=== PATIENT | male | born 1965 | race Caucasian/White ===

== ENCOUNTER 2017-10-09 10:56 | Inpatient (IN) | payer BC ==
[2017-10-04 16:11] VITALS: BMI 38.2
[2017-10-09] MEDS ORDERED: BUPIVACAINE HCL/PF 0.5% (5MG/ML) 10 ML VIAL ONE (12:57)
[2017-10-09] MEDS ORDERED: MIDAZOLAM HCL 2 MG/2 ML SINGLE DOSE VIAL ONE (13:35)
[2017-10-09] MEDS ORDERED: DEXAMETHASONE SOD PHOSPHATE 4 MG/1 ML VIAL ONE ×2 (13:35→17:18)
[2017-10-09] MEDS ORDERED: LIDOCAINE HCL/PF 2% SDV 5ML VIAL ONE (13:35)
[2017-10-09] MEDS ORDERED: fentaNYL CITRATE 250 MCG/5 ML VIAL ONE ×2 (13:50→16:34)
[2017-10-09] MEDS ORDERED: ROCURONIUM BROMIDE 50 MG/5 ML VIAL ONE ×2 (13:51→14:25)
[2017-10-09] MEDS ORDERED: PROPOFOL 20 ML ONE (13:51)
[2017-10-09] MEDS ORDERED: ceFAZolin SODIUM 1 GM VIAL ONE (13:52)
[2017-10-09] MEDS ORDERED: ceFAZolin SODIUM 1 GM VIAL IVPB ONE (14:00)
--- NOTE | 2017-10-09 14:35 | PREOP ---
DATE OF ADMISSION: 10/09/2017 CHIEF COMPLAINT: 1. Morbid obesity. 2. Epigastric abdominal pain. 3. Gastroesophageal reflux disease. 4. Vomiting. HISTORY OF PRESENT ILLNESS: The patient is a 52-year-old gentleman with a history of morbid obesity for many years despite multiple attempts at dietary weight loss. He underwent a laparoscopic gastric band procedure years ago which initially was successful but since then had caused problems most likely being epigastric pain, GE reflux disease, and vomiting. He presents now for removal of the gastric band plus subcutaneous port and conversion to a sleeve gastrectomy surgery. PAST MEDICAL HISTORY: Significant for GE reflux disease, sleep apnea, and high cholesterol. REVIEW OF SYMPTOMS: Neurologic: Within normal limits. Pulmonary: Within normal limits. Cardiovascular: Within normal limits. Gastrointestinal: Positive for GE reflux disease. Extremities: Within normal limits. PHYSICAL EXAMINATION: General: Awake, alert, morbidly obese. No acute distress. HEENT: No masses palpated. Lungs: Clear bilaterally. Heart: Regular sinus rhythm. Abdomen: Well-healed trocar incision. Soft, nontender on palpation. Extremities: No pitting edema. No swelling noted. IMPRESSION: Morbid obesity, epigastric pain, vomiting, gastroesophageal reflux disease. PLAN: Removal of gastric band plus subcutaneous port and conversion to laparoscopic vertical sleeve gastrectomy. Lee [id number]
[2017-10-09] MEDS ORDERED: LABETALOL HCL 5 MG/1 ML (100MG/20 ML VIAL) ONE (15:48)
[2017-10-09] MEDS ORDERED: BUPIVACAINE HCL/PF 0.5% (5MG/ML) 10 ML VIAL IJ ONE (17:15)
[2017-10-09] MEDS: METOCLOPRAMIDE HCL INJECTION 10 MG/2 ML VIAL IVPUSH SCH ×2 (17:18→23:44)
[2017-10-09] MEDS ORDERED: GLYCOPYRROLATE 0.2 MG/1 ML VIAL ONE (17:19)
[2017-10-09] MEDS ORDERED: NEOSTIGMINE METHYLSULFATE 0.5 MG/ML - 10 ML MDV ONE (17:19)
[2017-10-09] MEDS ORDERED: ONDANSETRON 4 MG/2 ML VIAL IVPUSH PRN (17:26)
[2017-10-09] MEDS ORDERED: HYDROmorphone HCL CARPU-JECT 1 MG/1 ML DISP.SYRIN IVPB PRN (17:27)
--- NOTE | 2017-10-09 17:28 | OP ---
Operative Note - Note: Operative Date: 10/09/17 Pre-Operative Diagnosis: S/P gastric band removal- evaluate anatomy prior to sleeve gastrectomy Operation: EGD/upper endoscopy Findings: No torsion, mild narrowing near proximal aspect of the stomach near prior gastric wrap Post-Operative Diagnosis: Same as Pre-op Surgeon: Reagan Martínez Groundskeeper Supervisor: Frankie Girard Anesthesia: General Specimens Removed: None Estimated Blood Loss (mls): 0 Operative Report Dictated: Yes
--- NOTE | 2017-10-09 17:31 | OP ---
Operative Note - Note: Operative Date: 10/09/17 Pre-Operative Diagnosis: S/P vertical sleeve gastrectomy- evaluate for leak/ obstruction Operation: EGD/upper endoscopy Findings: No leak/obstruction Prior area of narrowing improved after gastric wrap further dissected/opened up Post-Operative Diagnosis: Same as Pre-op Surgeon: Reagan Martínez Clinical Resource Manager: Frankie Girard Anesthesia: General Specimens Removed: None Estimated Blood Loss (mls): 0 Operative Report Dictated: Yes
[2017-10-09] MEDS ORDERED: HYDROmorphone HCL CARPU-JECT 2 MG/1 ML DISP.SYRIN IVPUSH PRN (17:40)
[2017-10-09] MEDS ORDERED: METOCLOPRAMIDE HCL INJECTION 10 MG/2 ML VIAL ONE (18:15)
[2017-10-09 18:27] LABS: MCH 28.9 pg (25.7-33.7); MCHC 33.8 g/dl (32.0-35.9); MEAN CELL VOLUME 85.5 fl (80-96); MEAN PLT VOLUME 8.8 fl (7.5-11.1); PLATELET COUNT 203 K/MM3 (134-434); RDW 14.1 % (11.9-15.9); WHITE BLOOD COUNT 11.4 K/mm3 (4.0-10.0)
[2017-10-09] MEDS ORDERED: PROMETHAZINE HCL 25 MG/1 ML VIAL ONE (18:28)
[2017-10-09 18:50] LABS: ALBUMIN 3.4 g/dl (3.4-5.0); ANION GAP 6 (8-16); BILIRUBIN,TOTAL 0.5 mg/dL (0.2-1.0); CALCIUM 7.9 mg/dL (8.5-10.1); CO2 28 mmol/L (21-32); CREATININE 1.1 mg/dL (0.7-1.3); GLUCOSE,RANDOM 142 mg/dL (74-106); SGOT/AST 38 U/L (15-37); SGPT/ALT 34 U/L (12-78); TOT PROT 6.6 g/dl (6.4-8.2)
[2017-10-09 18:51] LABS: ALK PHOS 58 U/L (45-117)
[2017-10-09] MEDS: SODIUM CHLORIDE 1,000 ML IV SCH (19:00)
[2017-10-09] MEDS ORDERED: PROMETHAZINE HCL 25 MG/1 ML VIAL IVPUSH ONE (19:31)
[2017-10-09] MEDS ORDERED: HYDROmorphone HCL CARPU-JECT 2 MG/1 ML DISP.SYRIN ONE (19:58)
[2017-10-09] MEDS: ENOXAPARIN NA (PORCINE) 40 MG/0.4 ML DISP.SYRIN SQ SCH (23:38)
[2017-10-09] MEDS: FAMOTIDINE 20 MG/50 ML IVPB 20 MG/50 ML MG IVPB SCH (23:39)
[2017-10-10] MEDS: METOCLOPRAMIDE HCL INJECTION 10 MG/2 ML VIAL IVPUSH SCH ×3 (06:34→16:55)
[2017-10-10 07:28] LABS: MCH 29.3 pg (25.7-33.7); MCHC 34.3 g/dl (32.0-35.9); MEAN CELL VOLUME 85.4 fl (80-96); MEAN PLT VOLUME 9.4 fl (7.5-11.1); PLATELET COUNT 200 K/MM3 (134-434); RDW 13.8 % (11.9-15.9)
[2017-10-10 07:33] LABS: ALBUMIN 3.3 g/dl (3.4-5.0); ANION GAP 9 (8-16); BILIRUBIN,TOTAL 0.5 mg/dL (0.2-1.0); CALCIUM 8.5 mg/dL (8.5-10.1); CO2 30 mmol/L (21-32); CREATININE 1.3 mg/dL (0.7-1.3); GLUCOSE,RANDOM 133 mg/dL (74-106); SGOT/AST 37 U/L (15-37); SGPT/ALT 35 U/L (12-78); TOT PROT 6.5 g/dl (6.4-8.2)
[2017-10-10 07:34] LABS: ALK PHOS 50 U/L (45-117)
[2017-10-10] MEDS ORDERED: ACETAMINOPHEN 1000 MG/100 ML VIAL (NON FORMULARY) IVPB ONE (08:08)
--- NOTE | 2017-10-10 08:11 | PN ---
Progress Note (short form) - Note Progress Note: POD#1 Pt without any nausea or emesis. No CP or SOB. He complains of neck and upper shoulder pain. No numbness or tingling in his upper extremities. Vital Signs Period Temp Pulse Resp BP Sys/Peña Pulse Ox Last 24 Hr 97.6 F-98.5 F 55-74 11-20 108-170/62-91 93-98 GEN: appears comfortable CV: RRR Lungs: CTA b/l ABD: soft, non-distended, inc tenderness. Inc c/d/i. LE: no calf tenderness or swelling noted b/l. Landy and SCDs in place. CBC, BMP 10/10/ 06:30 A/P: s/p lap band removal with vertical sleeve gastrectomy IV tylenol for neck/shoulder pain Plan for UGI study today and if negative may begin oral bariatric diet cbc/chem today DVT ppx with SCD/LANDY stocking. Lovenox SQ.
--- NOTE | 2017-10-10 08:57 | OP ---
DATE OF OPERATION: 10/09/2017 SURGEON: Juan Martínez MD RETAIL STORE MANAGER: Frankie Girard MD PREOPERATIVE DIAGNOSIS: Status post removal of gastric band, evaluate anatomy prior to sleeve gastrectomy. ANESTHESIA: GET. ESTIMATED BLOOD LOSS: Zero. SPECIMEN: None. REASON FOR PROCEDURE: This is a 52-year-old gentleman who had a prior gastric band placed. He was undergoing a removal of gastric band with possible sleeve gastrectomy. After the gastric band was removed and the capsulotomy performed, endoscopy was requested to further evaluate the anatomy prior to a sleeve gastrectomy. DESCRIPTION OF PROCEDURE: The endoscope was inserted into the mouth. The entirety of the esophagus, GE junction, and stomach was inspected. There was a mild narrowing at the proximal aspect of the stomach near where the gastric wrap had previously been performed. The remainder of the stomach was noted to be within normal limits. No torsion was noted. At this point, the endoscope was used to suction the stomach, and the endoscope was removed fully intact. The remainder of the surgery was performed including a further dissection of the gastric wrap and sleeve gastrectomy. Patient tolerated the procedure well. JUAN MARTÍNEZ M.D. [id number]
[2017-10-10] MEDS: ENOXAPARIN NA (PORCINE) 40 MG/0.4 ML DISP.SYRIN SQ SCH (09:37)
[2017-10-10] MEDS: SODIUM CHLORIDE 1,000 ML IV SCH (09:38)
[2017-10-10] MEDS: FAMOTIDINE 20 MG/50 ML IVPB 20 MG/50 ML MG IVPB SCH (09:38)
[2017-10-10] MEDS ORDERED: ESCITALOPRAM OXALATE 20 MG TABLET (FP) PO SCH (10:00)
--- NOTE | 2017-10-10 10:12 | OP ---
DATE OF OPERATION: 10/09/2017 PREOPERATIVE DIAGNOSES: 1. Morbid obesity. 2. Malfunctioning implantable device secondary to gastric band. 3. Epigastric pain. 4. Gastroesophageal reflux disease. 5. Vomiting. 6. Sleep apnea. POSTOPERATIVE DIAGNOSES: 1. Morbid obesity. 2. Malfunctioning implantable device secondary to gastric band. 3. Epigastric pain. 4. Gastroesophageal reflux disease. 5. Vomiting. 6. Sleep apnea. 7. Abdominal adhesions. 8. Hepatomegaly. PROCEDURE PERFORMED: 1. Laparoscopic vertical sleeve gastrectomy. 2. Removal of gastric band plus subcutaneous port component. 3. Wedge biopsy of the left lobe of the liver. 4. Laparoscopic lysis of adhesions. 5. Excision of fibrous capsule around the stomach. 6. Diagnostic laparoscopy. OPERATING SURGEON: Frankie Girard MD MANAGER ROOM: Reagan Martínez MD ANESTHESIA: General. EXPECTED BLOOD LOSS: 50 mL DISPOSITION: Patient transferred to recovery room in stable condition. DESCRIPTION OF OPERATIVE PROCEDURE: The patient was brought into the operating room and placed on the OR table in the supine position. All precautions were taken initially including padding for the back and the feet, and Venodyne boots were placed on both lower extremities. At that point, the abdomen was prepped and draped in the usual manner. A Veress needle was placed in the left upper quadrant and a pneumoperitoneum established. A number 12 bladeless trocar was placed in the left upper quadrant. Through that trocar, a laparoscopic camera was placed. Under direct vision, a number 15 bladeless trocar was placed in the midline in the supraumbilical position, following a number 5 bladeless trocar in the right upper quadrant and a number 5 bladeless trocar below the left costal margin. A Abby liver retractor was then placed in the epigastrium to retract the left lobe of the liver. The left lobe was noted to be enlarged and also to have scar tissue between the omentum and the undersurface of the left lobe of the liver. This scar tissue needed to be removed in order to fully lift the liver up. The electrocautery was used to dissect the scar tissue off the liver, and at this point, the liver retractor was placed deeper into the liver and then lifted so that more visualization was obtained. The liver was noted to be enlarged; so, I decided a wedge biopsy would be performed. With the electrocautery turned higher, first the capsule and then parenchyma of the liver on the edge of the left lobe was dissected, and a wedge piece of liver was taken off the liver edge and sent off the field as a specimen to Pathology. The parenchyma of the liver had some minor bleeding which was easily controlled with electrocautery. At this point, our attention was directed to the band around the upper portion of the stomach. There was significant scar tissue over it, and this was dissected with electrocautery on the lesser curvature side until the entire band on the lesser curvature was in full view. At this point, the operating surgeon grabbed the band tubing and retracted it toward the patient's right side as the media center assistant surgeon retracted the inferior stomach inferiorly to provide better access to the greater curvature of the band. The capsule over the band was now dissected with electrocautery off the band until the entire band was in full view. The band tubing was then cut at its takeoff to the subcutaneous port, and the band tubing was then removed from around the stomach and sent off the field to Pathology as a specimen. At this point, attention was directed to the fibrous capsule around the upper stomach where the band had been. With the media center assistant surgeon and the operating surgeon lifting the capsule upward, the operating surgeon was able to place a laparoscopic scissor underneath the fibrous capsule and then dissect the fibrous capsule and split it in half starting inferiorly and going all the way superiorly almost to the esophageal area. Once this was fully clean, the scar tissue was then pulled backward toward the left side or the lesser curvature side and dissected off the stomach wall. Dissection also continued toward the greater curvature side until all the fibrous capsule around the stomach was now clean. At this point, the media center assistant surgeon, Dr. Martínez, stepped out of the operative field and performed an upper endoscopy which will be described in his operative note. What it did show was that there was some minor twisting in the upper part of the stomach, probably where the band had been, and this may cause difficulty if the sleeve was very tight. The rest of the stomach within normal limit including the body and the antrum of the stomach down to the pylorus. At this point, Dr. Martínez returned to the operative field where further dissection of the scar tissue on the lesser curvature was performed, and this was until the entire stomach was in full view on the anterior surface. At this point, 6 cm was measured proximally from the pylorus, and here, the LigaSure device was used to dissect the gastrocolic ligament off the greater curve of stomach. The operating surgeon lifted the stomach toward the anterior abdominal wall as the media center assistant surgeon retracted the gastrocolic ligament inferiorly. The LigaSure dissected the gastrocolic ligament initially and then, also, the short gastric vessels superiorly until the final short gastric vessel between the proximal fundus and the superior pole of spleen were dissected. At this juncture, Anesthesia placed a number 40 bougie into the stomach. With the bougie held along the lesser curvature, a series of ruddy was performed with the first two being black load ruddy 6 cm in length along the bougie. This was followed by a series of purple load ruddy along the bougie until the final staple was fired in the left upper quadrant, and the greater curve was now completely detached from the lesser curve. It should be noted that prior to firing each staple, both the anterior and posterior grajeda were checked that they were intact. In the area of the esophagogastric junction, approximately 1 to 1.5 cm of serosa remained on the anterior and posterior surfaces. At this juncture, saline was placed around the staple line, and the bougie was inflated with air. This showed the entire stomach distended down to the pylorus. No obstruction and no leaks were noted. At this juncture, Dr. Martínez again stepped out of the operative field and performed another upper endoscopy, this one post procedure. This showed that the upper stomach was now a more direct route with no signs of any twists, and all the way down to the antrum and pylorus, there was no sign of obstruction. Also, no signs of leakage noted from the staple line. At this juncture, the greater curvature which was resected was removed with a number 15 trocar site in the midline, sent off the field as a specimen to Pathology. Under direct vision, the number 15 and 12 trocar sites were closed with Endo Closure device to prevent internal hernia and prevent bleeding. Under direct vision, all trocars were removed, and pneumoperitoneum was released. The number 15 site in the midline was now extended toward the right, and the port in the right upper quadrant was now in full view. The scar tissue and fibrous capsule over the port were dissected, and the port was then removed from the right anterior rectus muscle and sent off the field as a specimen to Pathology. All trocar sites then received 0.25% Marcaine. The port site was closed with 3-0 Vicryl in the subcutaneous tissue and then followed by 4-0 Biosyn in subcuticular fashion. All other trocar sites received 4-0 Biosyn in subcuticular fashion. Dressings were applied. Patient awoke from anesthesia and transferred out of the operating room to the recovery room in stable condition. Lee [id number]
--- NOTE | 2017-10-10 10:30 | OP ---
DATE OF OPERATION: 10/09/2017 SURGEON: Juan Martínez MD SCRUBBING MACHINE OPERATOR: Frankie Girard MD PREOPERATIVE DIAGNOSES: Status post vertical sleeve gastrectomy, evaluate for a leak/obstruction. POSTOPERATIVE DIAGNOSES: Status post vertical sleeve gastrectomy, evaluate for a leak/obstruction. PROCEDURE: Esophagogastroduodenoscopy/upper endoscopy. ESTIMATED BLOOD LOSS: 0 mL. DRAINS: None. ANESTHESIA: GET. REASON FOR PROCEDURE: This is a 52-year-old gentleman who underwent a vertical sleeve gastrectomy laparoscopically. To further evaluate the anatomy and to evaluate for leak and obstruction, an upper endoscopy was requested. DESCRIPTION OF PROCEDURE: The endoscope was inserted into the patients mouth. Esophagus, GE junction, and the gastric pouch was fully inspected. The previous area of narrowing that was noted after the band removal was now noted to be no longer present. The area of narrowing had opened significantly after the prior gastrograph was further dissected. The entirety of the staple line was inspected and noted to be intact. There was no leak or obstruction noted. The endoscope was removed after suctioning the stomach, and patient tolerated the procedure well. JUAN MARTÍNEZ M.D. [id number]
--- NOTE | 2017-10-10 11:00 | PN ---
Progress Note (short form) - Note Progress Note: Anesthesia Post op Pt seen and examined S:alert and awake O: Vital Signs Temperature 98.8 F 10/10/17 08:15 Pulse Rate 56 L 10/10/17 08:15 Respiratory Rate 16 10/10/17 08:15 Blood Pressure 127/72 10/10/17 08:15 O2 Sat by Pulse Oximetry (%) 93 L 10/10/17 05:00 CBC, BMP 10/10/17 06:30 10/10/17 06:30 A/P: s/p Removal of gastric band EGD Doing well post op Continue current care Artur Stark MD
[2017-10-10 15:48] VITALS: BP 125/70; PULSE 98; TEMP 97.4
[2017-10-10] MEDS ORDERED: ACETAMINOPHEN 325 MG TABLET (FP) PO PRN (17:04)
[2017-10-10] MEDS ORDERED: oxyCODONE HCL 5 MG TABLET PO PRN (17:04)
[2017-10-10] MEDS ORDERED: SODIUM CHLORIDE 1,000 ML IV SCH (17:15)
--- NOTE | 2017-10-10 18:26 | PN ---
Progress Note (short form) - Note Progress Note: POD#1 Afebrile; VSS Pt OOB in chair Was ambulating earlier No N/V P/e - all trocar sites clean, dry Ext- lower ext with no swelling WBC-11.0 (decreased) H.H-13.2/38.4 UGI- no leak, no obstruction P- PO clear liquids 3 oz po tid ' Encourage continued ambulation D/C pt home today
--- NOTE | 2017-10-12 16:47 | PATH ---
Surgical Pathology Report Patient Name: JC MARTIN [facility]. Rec. #: [id number] /Age/Gender: 1965 (Age: 52) / M Account: [id number] Location: 4 W TELEMETRY U Taken: 10/09/2017 Received: 10/10/2017 Reported: 10/12/2017 Physicians: Frankie Girard M.D. Specimen(s) Received A: REMOVED LAP BAND PLUS SUB-PORT B: GREATER CURVATURE OF STOMACH C: LIVER BIOPSY Clinical History Preoperative diagnosis: Morbid obesity, sleep apnea Postoperative diagnosis: Same Final Diagnosis A. STOMACH, LAP BAND, REMOVAL: ENVIRONMENTAL SUSTAINABILITY MANAGER CONSISTENT WITH LAP BAND. MACROSCOPIC DIAGNOSIS. B. STOMACH, GREATER CURVATURE, LAPAROSCOPIC VERTICAL SLEEVE GASTRECTOMY: PORTION OF STOMACH WITH MILD CHRONIC GASTRITIS. IMMUNOHISTOCHEMICAL STAIN FOR H. PYLORI IS NEGATIVE. C. LIVER, BIOPSY: LIVER PARENCHYMA WITH PATCHY STEATOSIS (~10%). THERE IS NO INCREASE IN FIBROSIS OR IRON ON PERFORMED SPECIAL STAINS (TRICHROME AND IRON). Electronically Signed Marni Johnson M.D. Gross Description A. Received fresh labeled "removed flap band," is a 4.5 cm in diameter circular device, consistent with a lap band. The band displays a 42 cm in length portion of tubing extending from one aspect. Also received within the same container is a 3 cm in diameter x 1.5 cm in depth white, circular device, consistent with a port. The port displays a 13 cm in length portion of white tubing extending from one aspect. No soft tissue is present. No sections are submitted, gross only. B. Received in formalin, labeled "greater curvature of stomach," is a 143 gram, 19.0 x 4.0 x 3.5 cm. portion of stomach with a stapled margin of resection. The serosa is dockery-lozano with minimal attached fat. The mucosa is dockery-pink with normal folds. No mucosal masses are identified. Vice Chair sections are submitted in one cassette. C. Received in formalin labeled "liver biopsy," is a 2.4 x 1.4 x 0.4 cm dockery, irregular portion of liver tissue. The specimen is bisected and entirely submitted in one cassette. 10/10/201710/10/2017
== END 2017-10-10 18:57 | disposition home or self-care (01) | DRG 620 ==
LOC: JSAMEDAYSX 11:17 → EDSTATUS 12:00 → J4W 19:29 → JSAMEDAYSX 19:31 → J4W 20:50
PROVIDERS: ADMIT Surgery; ATTEND Surgery
PROC: 0DB64Z3 Excision of Stomach, Percutaneous Endoscopic Approach, Vertical (ICD-10-PCS; principal; 2017-10-09 13:00)
PROC: 0DNW3ZZ Release Peritoneum, Percutaneous Approach (ICD-10-PCS; 2017-10-09 13:00)
PROC: 0FB24ZX Excision of Left Lobe Liver, Percutaneous Endoscopic Approach, Diagnostic (ICD-10-PCS; 2017-10-09 13:00)
PROC: 0DP64CZ Removal of Extraluminal Device from Stomach, Percutaneous Endoscopic Approach (ICD-10-PCS; 2017-10-09 13:00)
PROC: 0DJ08ZZ Inspection of Upper Intestinal Tract, Via Natural or Artificial Opening Endoscopic (ICD-10-PCS; 2017-10-09 13:00)
DX: E66.01 Morbid (severe) obesity due to excess calories (principal); T85.518A Breakdown (mechanical) of other gastrointestinal prosthetic devices, implants and grafts, initial encounter; Z68.38 Body mass index [BMI] 38.0-38.9, adult; G47.39 Other sleep apnea; K21.9 Gastro-esophageal reflux disease without esophagitis; R16.0 Hepatomegaly, not elsewhere classified; K66.0 Peritoneal adhesions (postprocedural) (postinfection); R10.13 Epigastric pain; R11.10 Vomiting, unspecified; Y83.8 Other surgical procedures as the cause of abnormal reaction of the patient, or of later complication, without mention of misadventure at the time of the procedure
CPT/HCPCS: 36415; 74241-TC; 80053; 85027; 86850; 86900; 86901; 88300-TC; 88305-TC; 88307-TC; 94760